=== PATIENT | male | born 1960 | race Caucasian/White ===

== ENCOUNTER → 2024-01-23 17:00 | Outpatient (BNVA) | payer MEDICAID, SELFPAY | DX: M19.032 Primary osteoarthritis, left wrist (principal); S61.442A Puncture wound with foreign body of left hand, initial encounter; X58.XXXA Exposure to other specified factors, initial encounter | CPT/HCPCS: 73100 ==

== ENCOUNTER 2025-03-17 15:16 | Emergency (ER) | payer MEDICAID, SELFPAY ==
[2025-03-17 15:17] VITALS: BP 158/89; PULSE 77; RESP 18; TEMP 36.6; O2SAT 98; BMI 24.3
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
[2025-03-17] MEDS: ondansetron 2 mg/ML SDV 2 mL 4 MG IVP (15:36)
--- NOTE | 2025-03-17 15:37 | PC.NURSE ---
this nurse educated pt on need for urine sample. pt reports not being able to give sample at this time, he will try later. urinal provided
[2025-03-17 15:39] LABS: Hematocrit 41.5 % (37-53); Hemoglobin 14.50 g/dL (11.27-16.99); Mean Corpuscular HGB Conc 34.9 g/dL (30-55); Mean Corpuscular Hemoglobin 31.6 pg (27-33); Mean Corpuscular Volume 90.4 fl (82-101); Nucleated Red Blood Cells % 0 %; Platelet Count 281 10^3/cmm (157-399); Red Blood Count 4.59 10^6/uL (3.85-5.65); White Blood Count 7.88 10^3/uL (3.29-11.43)
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
[2025-03-17 15:55] LABS: Alanine Aminotransferase 31 U/L (0-41); Albumin Level 4.5 g/dL (3.5-5.2); Alcohol Level 12 mg/dL (0-10); Alkaline Phosphatase 59 U/L (40-130); Anion Gap 14.6 (5-19); Aspartate Amino Transferase 28 U/L (0-40); Blood Urea Nitrogen 16 mg/dL (8-23); Calcium 9.3 mg/dL (8.5-10.5); Carbon Dioxide 27 mmol/L (22-29); Chloride 103 mmol/L (98-107); Creatinine Clr Calc Pharmacy 87.0966; Globulin 2.7 g/dL (1.3-4.6); Glucose 119 mg/dL (65-115); Osmolality Calculated 294 mOsm/kg (285-295); Potassium 3.6 mmol/L (3.5-5.1); Sodium 141 mmol/L (136-145); Total Protein 7.2 g/dL (6.6-8.7)
[2025-03-17] MEDS: morphine 4 mg/mL SDV 1 mL IVP (15:58)
--- NOTE | 2025-03-17 16:56 | PC.NURSE ---
re-educated pt on need for urine sample, pt states unable to urinate. pt is eating 20pc [employer]get from [employer] with fries and sprite.
[2025-03-17 17:31] VITALS: BP 131/89; PULSE 67; O2SAT 98
[2025-03-17 17:36] LABS: PCP Screen Urine Negative (Negative)
[2025-03-17 17:42] VITALS: PULSE 87; O2SAT 98
== END 2025-03-17 17:46 | disposition home or self-care (01) ==
PROVIDERS: Emergency Provider Physician Assistant
DX: S02.2XXA Fracture of nasal bones, initial encounter for closed fracture (principal); S02.5XXA Fracture of tooth (traumatic), initial encounter for closed fracture; S60.211A Contusion of right wrist, initial encounter; V89.2XXA Person injured in unspecified motor-vehicle accident, traffic, initial encounter; F17.210 Nicotine dependence, cigarettes, uncomplicated
CPT/HCPCS: 70450; 70486; 71250; 72125; 73110; 74176; 80053; 80306; 80307; 85025; 96374; 96375; 99285; J2270; J2405